=== PATIENT | female | born 1975 | race Caucasian/White ===

== ENCOUNTER → 2021-06-29 | Day surgery (SDC) | payer OTHER ==
[~2021-06-29] MED LIST: BUPIVACAINE HCL 0.5% INJ 30 ML VIAL INJ ONE; CLARITIN10 MG PO; COLLAGEN PO; DEXAMETHASONE SOD PHOS INJ 4 MG/ML SDV ONE; ELDERBERRY PO; FENTANYL CITRATE/PF 100MCG/2 ML INJ ONE; KETOROLAC TROMETHAMINE 30 MG/ML VIAL ONE; LIDOCAINE HCL 2% LOCAL INJ 5 ML SDV VIAL INJ ONE; MIDAZOLAM HCL 2 MG/2 ML VIAL ONE; OMEPRAZOLE40 MG PO; ONDANSETRON HCL INJ 2MG/ML 2ML 2 MG/ML VIAL ONE; OXYBUTYNIN CHLOR5 MG PO; POVIDONE IODINE 0.05% 0.05 % ML PO ONE; PROMETHAZINE HCL (IM) 25 MG/ML VIAL IM ONE; PROPOFOL IV EMULSION 10 MG/ML 20 ML VIAL ONE; ROPIVACAINE 0.5% 5 MG/ML 30 ML SDV ONE; SEVOFLURANE INHAL SOLN 250 ML PEN BTL ONE; SKELAXIN800 MG PO; SODIUM CHLORIDE 0.9% 50ML 100 ML ONE; VITAMIN C1000 MG PO; VITAMIN D3 PO
[2021-06-29 12:30] VITALS: BP 140/76
== END | disposition home or self-care (01) ==
LOC: OR 09:30
PROVIDERS: ATTEND Orthopaedic Surgery
DX: S83.232A Complex tear of medial meniscus, current injury, left knee, initial encounter (principal); D75.89 Other specified diseases of blood and blood-forming organs; S83.282A Other tear of lateral meniscus, current injury, left knee, initial encounter; M67.52 Plica syndrome, left knee; M22.42 Chondromalacia patellae, left knee; M19.90 Unspecified osteoarthritis, unspecified site; M06.9 Rheumatoid arthritis, unspecified; S83.231A Complex tear of medial meniscus, current injury, right knee, initial encounter; S83.271A Complex tear of lateral meniscus, current injury, right knee, initial encounter; S83.511A Sprain of anterior cruciate ligament of right knee, initial encounter; G47.33 Obstructive sleep apnea (adult) (pediatric); K21.9 Gastro-esophageal reflux disease without esophagitis; N39.0 Urinary tract infection, site not specified; R56.9 Unspecified convulsions; X58.XXXA Exposure to other specified factors, initial encounter; Z88.6 Allergy status to analgesic agent; Z91.013 Allergy to seafood; Z01.812 Encounter for preprocedural laboratory examination; Z20.822 Contact with and (suspected) exposure to COVID-19; Z79.899 Other long term (current) drug therapy
CPT/HCPCS: 27599; 29882; 81025; C1713 ×2; J0690; J1100; J1885; J2001; J2250; J2405; J2550; J2704; J2795; J3010; U0002; 76000

== ENCOUNTER → 2021-11-16 | Day surgery (SDC) | payer OTHER ==
[~2021-11-16] MED LIST changes: +ACETAMINOPHEN 1000 MG/100 ML 100 ML IV ONE; +ALBUTEROL0.63 MG/3 NEB; +BUPIVACAINE HCL 0.25% 10ML MPF VIAL INJ ONE; -BUPIVACAINE HCL 0.5% INJ 30 ML VIAL INJ ONE; +CYMBALTA30 MG PO; +HYDROCODONE/APAP 7.5MG-325MG 1 EA TAB ONE; -KETOROLAC TROMETHAMINE 30 MG/ML VIAL ONE; +LIDOCAINE 2% /EPINEPHRINE 20 ML SDV INJ ONE; -PROMETHAZINE HCL (IM) 25 MG/ML VIAL IM ONE; -SODIUM CHLORIDE 0.9% 50ML 100 ML ONE; +Vancomycin IV 1 GM VIAL ONE
[2021-11-16 17:15] VITALS: BP 129/81
== END | disposition home or self-care (01) ==
LOC: OR 08:08
PROVIDERS: ATTEND Orthopaedic Surgery
DX: S83.511A Sprain of anterior cruciate ligament of right knee, initial encounter (principal); S83.231A Complex tear of medial meniscus, current injury, right knee, initial encounter; S83.271A Complex tear of lateral meniscus, current injury, right knee, initial encounter; D75.89 Other specified diseases of blood and blood-forming organs; M22.41 Chondromalacia patellae, right knee; M65.861 Other synovitis and tenosynovitis, right lower leg; G47.33 Obstructive sleep apnea (adult) (pediatric); J45.909 Unspecified asthma, uncomplicated; E66.01 Morbid (severe) obesity due to excess calories; K21.9 Gastro-esophageal reflux disease without esophagitis; X58.XXXA Exposure to other specified factors, initial encounter; Z88.6 Allergy status to analgesic agent; Z91.013 Allergy to seafood; Z91.048 Other nonmedicinal substance allergy status; Z01.812 Encounter for preprocedural laboratory examination; Z20.822 Contact with and (suspected) exposure to COVID-19; Z79.899 Other long term (current) drug therapy
CPT/HCPCS: 0223U; 36415; 76000; 81025; C1713; C1769; J0690; J1100; J2001; J2250; J2405; J2795; J3010; J3370